=== PATIENT | female | born 1955 | race Caucasian/White ===

== ENCOUNTER → 2019-11-12 | Outpatient (CLI) | payer OTHER ==
[~2019-11-12] MED LIST: AMBIEN 5 MG TABL5 M1 PO; ASHWAGANDHA PO; ASPIR 8181 MG PO; BACTROBAN22 GM TP; COMPOUNDED HORMONES SUBLING; COQ-10100 MG PO; COZAAR 25 MG TA25 M1 PO; EVENING PRIMRO1 EACH PO; HYLANDS LEG CRAMP PO; KEFLEX250 MG PO; LIPITOR40 MG PO; MELATONIN3 MG PO; MULTIVITAMINS PO; NORCO 5-325 TA1 EACH PO; RED YEAST RICE600 MG PO; SERTRALINE HCL100 MG PO; SERTRALINE HCL50 MG PO; TONALIN CLA 11000 MG PO; TRAZODONE HCL100 MG PO; VITAMIN B COMP1 EACH PO; VITAMIN D325 MC5 PO
== END ==
LOC: LAB 10:59
PROVIDERS: ATTEND Student in an Organized Health Care Education/Training Program
DX: Z01.812 Encounter for preprocedural laboratory examination (principal); Z11.59 Encounter for screening for other viral diseases

== ENCOUNTER → 2019-11-17 | Day surgery (SDC) | payer OTHER ==
[~2019-11-17] VITALS: Ht 157.5 cm; Wt 68.0 kg
[~2019-11-17] MED LIST changes: +PERCOCET 7.5-31 EAC1 PO
--- NOTE | ~2019-11-17 | O ---
[facility] [place] [address] OPERATIVE REPORT Name: HILDA NORWOOD Room #: REG [facility].#: [id number] Admission: 11/17/19 Attend Phys: Umang Carroll MD Discharge: Date of : 53 Report #: [id number] THIS REPORT FOR: cc: Jenny Lo MD,Jenny Carroll,Umang Muniz MD ~ CC: Jenny Carroll DATE OF SERVICE: 11/17/2019 PREOPERATIVE DIAGNOSES: 1. Left hallux valgus. 2. Left second, third and fourth toe hammertoe deformities. 3. Left fifth toe flexion contracture. POSTOPERATIVE DIAGNOSES: 1. Left hallux valgus. 2. Left second, third and fourth toe hammertoe deformities. 3. Left fifth toe flexion contracture. PROCEDURES: 1. Left great toe Kel osteotomy. 2. Left second, third and fourth toe proximal interphalangeal joint arthrodeses. 3. Left second, third and fourth toe dorsal capsulotomy and tenotomy at the metatarsophalangeal joint. 4. Left fifth toe flexor tenotomy. SURGEON: Dr. Umang Carroll. SIEBEL ARCHITECT: Karissa Ivan. ANESTHESIA: General. ESTIMATED BLOOD LOSS: Minimal. DRAINS: No drains. TOURNIQUET TIME: One hour. DESCRIPTION OF PROCEDURE: The patient brought to the operating room where she was placed under general anesthesia. Once under adequate general anesthesia, her left lower extremity was prepped and draped in sterile manner. The extremity was elevated, exsanguinated, tourniquet placed 300 mmHg. A dorsal medial incision over the proximal phalanx of the great toe was made. This was [facility] [address] [place] [address] OPERATIVE REPORT Name: HILDA NORWOOD Karyn Room #: REG [facility]..#: [id number] Admission: 11/17/19 Attend Phys: Umang Carroll MD Discharge: Date of : 53 Report #: [id number] dissected down through the soft tissue to the base of the proximal phalanx. Hohmann retractors were placed and a K-wire was placed under fluoroscopic guidance for the osteotomy. A sagittal saw was then used to perform an incomplete closing wedge osteotomy, then completed manually. Fixation was then achieved with a single 3.0 screw placed across the osteotomy site. Excellent fixation and alignment was achieved as verified under fluoroscopy. Dorsal incisions over the second, third and fourth toe proximal interphalangeal joints were then made. This was dissected down to the joints, which was then released with a [place] blade, exposing the proximal phalanx of the second, third and fourth toes. A sagittal saw was used to transect the proximal phalangeal necks and the heads were then resected with the small rongeur. The small rongeur was then utilized to prepare the base of each of the middle phalanx was used to get bleeding subchondral bone. The drill and broaches for the Smart Toe implant were then utilized and subsequently two size 19 and one size 16 in the fourth toe implants were used to transfix the fusion sites at the proximal interphalangeal joint. Dorsal incisions at the 2-3 and 4-5 web spaces were then made. Through these incisions, hemostat and then a tenotomy scissor was used to perform a dorsal capsulotomy and tenotomy at the metatarsophalangeal joints. Excellent release was achieved in this manner. A [place] blade was then utilized at the flexor skin crease in the fifth toe and a release of the flexor tendons there was achieved with this. Excellent alignment was then achieved. Once complete, the wounds were irrigated copiously and closed with 3-0 Vicryl in subcutaneous tissues and 3-0 nylon for the skin. The wounds were dressed with Xeroform, 4 x 4s, and a sterile soft compressive dressing was placed. Tourniquet was let down at 1 hour. Toes were pink and warm with good capillary refill. There were no complications from the procedure. The patient tolerated the procedure well and went to the recovery room without incident. By: [id number] Umang Carroll MD /ady
[2019-11-17 09:24] VITALS: BP 154/85
[2019-11-17 11:00] VITALS: BP 154/85
== END | disposition home or self-care (01) ==
LOC: OR 07:18
PROVIDERS: ATTEND Orthopaedic Surgery Foot and Ankle Surgery
DX: M20.12 Hallux valgus (acquired), left foot (principal); M20.42 Other hammer toe(s) (acquired), left foot; M24.575 Contracture, left foot; I10 Essential (primary) hypertension; E78.00 Pure hypercholesterolemia, unspecified; Z98.890 Other specified postprocedural states; Z79.899 Other long term (current) drug therapy; Z98.0 Intestinal bypass and anastomosis status; Z98.41 Cataract extraction status, right eye
CPT/HCPCS: 50010; 50101; 50386; 50951; 51412; 53341; 56524; 56527; 57091; 57179; 57511; 57512; 62110; 62900; 70005